=== PATIENT | male | born 1955 | race Hispanic/Latino ===

== ENCOUNTER 2017-07-10 08:12 | Day surgery (SDC) | payer OTHER, MEDICAID ==
[~2017-07-10] VITALS: Ht 167.6 cm; Wt 95.8 kg
[~2017-07-10 08:12] MED LIST: CLON1TAB4 PO; GABA-531 PO; HYDR-4060 PO; LISI-613 PO; NAPR-1023 PO; ROSU20TA PO; TRAM50TA4 PO
[2017-07-10 09:12] VITALS: BP 136/89
[2017-07-10] MEDS: SODIUM CHLORIDE 0.9% 1000ML 1,000 ML IV ONE (09:21)
[2017-07-10] MEDS ORDERED: PROPOFOL 10 MG/ML 20ML VIAL IV ONE (09:43)
[2017-07-10] MEDS ORDERED: FENTANYL CITRATE PF 50 MCG/1 ML 2ML VIAL ONE (09:43)
[2017-07-10 10:02] VITALS: BP 93/62
== END 2017-07-10 10:35 | disposition home or self-care (01) ==
LOC: DAH 08:12
PROVIDERS: ATTEND Internal Medicine Gastroenterology
DX: Z12.11 Encounter for screening for malignant neoplasm of colon (principal); I10 Essential (primary) hypertension; E78.5 Hyperlipidemia, unspecified; I25.10 Atherosclerotic heart disease of native coronary artery without angina pectoris; G43.909 Migraine, unspecified, not intractable, without status migrainosus; Z79.899 Other long term (current) drug therapy; Z98.890 Other specified postprocedural states; Z68.41 Body mass index [BMI] 40.0-44.9, adult; K57.30 Diverticulosis of large intestine without perforation or abscess without bleeding
CPT/HCPCS: 93005; A4606; G0121; J2704; J3010; J7030

== ENCOUNTER → 2019-02-26 | Outpatient (CLI) | payer OTHER, MEDICARE ==
[~2019-02-26] MED LIST changes: +CLON1TAB12 PO; -CLON1TAB4 PO; -ROSU20TA PO; +ROSU20TA23 PO
== END | disposition home or self-care (01) ==
LOC: SHCH 08:44
PROVIDERS: ATTEND Internal Medicine Cardiovascular Disease
DX: R94.31 Abnormal electrocardiogram [ECG] [EKG] (principal); I44.7 Left bundle-branch block, unspecified
CPT/HCPCS: 93306

== ENCOUNTER → 2019-02-28 | Outpatient (CLI) | payer OTHER, MEDICARE ==
[~2019-02-28] VITALS: Ht 162.6 cm; Wt 102.5 kg
[~2019-02-28] MED LIST changes: +REGADENOSON 0.4 MG/5 ML PF SYG IVP SCH
== END | disposition home or self-care (01) ==
LOC: SHCH 08:33
PROVIDERS: ATTEND Internal Medicine Cardiovascular Disease
DX: R94.31 Abnormal electrocardiogram [ECG] [EKG] (principal); I44.7 Left bundle-branch block, unspecified
CPT/HCPCS: 78452; 93017; 96374; A9500 ×2; J2785

== ENCOUNTER → 2020-06-08 | Outpatient (CLI) | payer OTHER ==
[~2020-06-08] MED LIST changes: -LISI-613 PO; +LISI20TA24 PO; -REGADENOSON 0.4 MG/5 ML PF SYG IVP SCH
== END | disposition home or self-care (01) ==
LOC: RAH 13:29
PROVIDERS: ATTEND Internal Medicine Cardiovascular Disease
DX: Z13.6 Encounter for screening for cardiovascular disorders (principal)
CPT/HCPCS: 75571

== ENCOUNTER → 2020-11-02 | Outpatient (CLI) | payer OTHER, MEDICARE ==
[~2020-11-02] VITALS: Ht 162.6 cm; Wt 104.8 kg
[~2020-11-02] MED LIST changes: +REGADENOSON 0.4 MG/5 ML PF SYG IVP SCH
== END | disposition home or self-care (01) ==
LOC: SHCH 08:44
PROVIDERS: ATTEND Internal Medicine Cardiovascular Disease
DX: I44.7 Left bundle-branch block, unspecified (principal); R07.9 Chest pain, unspecified; R51.9 Headache, unspecified; M79.606 Pain in leg, unspecified
CPT/HCPCS: 78452; 93017; 96374; A9500 ×2; J2785

== ENCOUNTER → 2023-04-11 | Outpatient (CLI) | payer OTHER ==
[~2023-04-11] MED LIST changes: +REGADENOSON 0.4 MG/5 ML PF SYG IVP ONE; -REGADENOSON 0.4 MG/5 ML PF SYG IVP SCH
== END | disposition home or self-care (01) ==
LOC: SHCH 08:13
PROVIDERS: ATTEND Internal Medicine Cardiovascular Disease
DX: I25.119 Atherosclerotic heart disease of native coronary artery with unspecified angina pectoris (principal)
CPT/HCPCS: 78452; 96374; 93017; J2785; A9500 ×2

== ENCOUNTER → 2024-06-18 | Outpatient (CLI) | payer OTHER ==
[~2024-06-18] MED LIST changes: -NAPR-1023 PO; +NAPR-1194 PO; -REGADENOSON 0.4 MG/5 ML PF SYG IVP ONE
[2024-06-18 12:13] LABS: CREATININE 1.2 mg/dL (0.5-1.3); POTASSIUM 3.9 mmol/L (3.5-5.1)
== END | disposition home or self-care (01) ==
LOC: LAB 05-22 09:40
PROVIDERS: ATTEND Physician Assistant
DX: R07.9 Chest pain, unspecified (principal)
CPT/HCPCS: 36415; 80048

== ENCOUNTER → 2024-06-25 | Outpatient (CLI) | payer OTHER ==
[~2024-06-25] MED LIST changes: +IOHEXOL 350 MG/ML 100ML INFUS..BTL IV ONE
--- NOTE | 2024-06-25 10:36 | HMCIMG ---
CT OF THE CHEST WITH CONTRAST- CT Cardiac Angio co-interpretation This is done as part of the CT cardiac angiogram study. The interpretation of the coronary arteries will be done by structural steel ironworker in a separate report. History: over-read Comparison: none CT Dose Index (CTDI): 77.90 mGy Dose Length Product (DLP): 493.40 total mGy PROTOCOL: Examination is done at 2.5 millimeter volumetric acquisition after contrast administration with Isovue 370, 100 cc IV, without complications. Photography is done at 5 millimeter thick intervals for the thorax. The examination begins above the heart and therefore the lung apices are incompletely included. The rest of the left lung is included but the right lung is only included up to its middle third. The periphery of the right lung is not included in the study. FINDINGS: The visualized part of the airway is preserved. The bony and soft tissue structures of the chest wall are unremarkable. The aorta is unremarkable. No mediastinal lymphadenopathy is seen. The lung windows demonstrate no worrisome pulmonary nodules, masses or infiltrates. There is no evidence of pulmonary embolism in the visualized lung segments. The upper abdominal views are unremarkable. Impression: No significant abnormalities identified.
== END | disposition home or self-care (01) ==
LOC: DAH 08:29 → RAH 08:29
PROVIDERS: ATTEND Internal Medicine Cardiovascular Disease
DX: R07.9 Chest pain, unspecified (principal)
CPT/HCPCS: 75574; Q9967

== ENCOUNTER 2024-12-02 14:43 | Observation (INO) | payer OTHER, MEDICAID ==
[~2024-12-02] VITALS: Ht 167.6 cm; Wt 102.5 kg
[~2024-12-02 14:43] MED LIST changes: -IOHEXOL 350 MG/ML 100ML INFUS..BTL IV ONE
[2024-12-02 15:22] LABS: IMMATURE GRANULOCYTE ABSOLUTE 0.02 K/uL (0-1); NUCLEATED RED BLOOD CELLS 0.0 % (0.0-0.19); PLATELET COUNT (AUTO) 198 K/uL (130-400); RED BLOOD CELL COUNT(AUTO) 4.17 MIL/uL (4.50-6.20); RED CELL DISTRIBUTION WIDTH 13.9 % (11.0-15.5); WHITE BLOOD COUNT (AUTO) 5.6 K/uL (4.8-10.8)
[2024-12-02 15:35] LABS: CREATININE 1.0 mg/dL (0.5-1.3); GLOMERULAR FILTR. RATE CALC 81.0 mL/min (>90); GLUCOSE,RANDOM 89.0 mg/dL (70-105); SODIUM SERUM 139.0 mmol/L (136-145); UREA NITROGEN, BLOOD 17.0 mg/dL (7-18)
--- NOTE | 2024-12-02 15:57 | ERN ---
ED Note History of Present Illness Stated Complaint: NUMBNESS TO BILATERAL ARMS Chief Complaint: Numbness Time Seen by MD: 14:49 Time Seen by Midlevel: 14:52 Dictation: 69-YEAR-OLD MALE COMING IN FROM PCP'S OFFICE FOR EVALUATION. PATIENT STATES AT ABOUT 3:00 A.M. HE FELT BILATERAL HAND TINGLING SENSATION, THEN AT 10:00 A.M. SHE HAD SHARP CHEST PAIN, HE SAYS HE TOOK HIS NITRO SUBLINGUAL THAT HE HAS PRESCRIBED FOR HIS ANGINA, WENT TO HIS PCP'S OFFICE TODAY AND WAS SENT HERE FOR " ABNORMAL" EKGS. Allergies: Coded Allergies: No Known Drug Allergies (Unverified Allergy, Unknown, 07/02/15) Home Meds Reported Medications Tramadol Hcl (Tramadol HCl) 50 Mg Tablet, 50 MG PO AD PRN for PAIN, TAB 07/02/15 Hydrocodone/Acetaminophen (Hydrocodon-Acetaminophen 5-325) 1 Each Tablet, 1 EACH PO AD PRN for PAIN, TAB 07/02/15 Naproxen (Naproxen) 500 Mg Tablet, 500 MG PO AD PRN for PAIN, TAB 07/02/15 Clonazepam (Clonazepam) 1 Mg Tablet, 1 MG PO BID, TAB 07/02/15 Lisinopril (Lisinopril) 20 Mg Tablet, 20 MG PO AM, TAB 07/02/15 Rosuvastatin Calcium (Crestor) 20 Mg Tablet, 20 MG PO HS, TAB 07/02/15 Gabapentin (Gabapentin) 300 Mg Capsule, 300 MG PO TID, CAP 07/02/15 Past Medical History Past Medical History: Heart Disease, Hypertension Additional Past Medical Hx: RA, OSTEO Surgical History: Other Review of System Dictation CONSTITUTIONAL: NEGATIVE FOR FEVER,CHILLS, AND WEIGHT LOSS EYES: NEGATIVE FOR INJURY, PAIN,REDNESS, AND DISCHARGE ENT: NEGATIVE FOR INJURY,PAIN OR SWELLING CARDIOVASCULAR: NEGATIVE FOR CHEST PAIN, PALPITATIONS, AND EDEMA RESPIRATORY: NEGATIVE FOR SHORTNESS OF BREATH, COUGH, AND WHEEZING, ABDOMEN/GI: NEGATIVE FOR ABDOMINAL PAIN, NAUSEA, VOMITING, DIARRHEA, AND CONSTIPATION BACK: NEGATIVE FOR INJURY AND PAIN : NEGATIVE FOR INJURY, BLEEDING AND DISCHARGE MS/EXTREMITY: NEGATIVE FOR INJURY AND DEFORMITY SKIN: NEGATIVE FOR RASH, AND DISCOLORATION NEURO: NEGATIVE FOR HEADACHE, WEAKNESS, NUMBNESS, TINGLING, AND SEIZURE PSYCH: NEGATIVE FOR SUICIDE IDEATION, HOMICIDAL IDEATION, AND HALLUCINATIONS Review of Systems: was completed Initial Vital Sign VS Vital Signs Date Time Temp Pulse Resp B/P (MAP) Pulse Ox O2 Delivery O2 Flow Rate FiO2 12/02/24 14:44 78 16 168/90 97 Room Air 0 12/02/24 15:00 21 12/02/24 16:30 98.2 Physical Exam Dictation GENERAL: AWAKE, ALERT, NAD HEAD/FACE: NORMOCEPHALIC, ATRAUMATIC EYES: PERRL, EOMI, VISION AT BASELINE ENT: ORAL CAVITY CLEAR, TMS CLEAR, NO SIGNS OF INFECTION NECK: TRACHEA MIDLINE, SUPPLE, NO NUCHAL RIGIDITY CARDIOVASCULAR: RRR, NORMAL S1/S2, NO MRGS, NO JVD RESPIRATORY: CTAB, NO RESPIRATORY DISTRESS, NO RALES OR WHEEZES ABDOMEN: SOFT, NON-TENDER, NON-DISTENDED, NORMAL BOWEL SOUNDS, NO GUARDING OR REBOUND. SKIN: WARM, DRY, NORMAL TURGOR, NO RASH MS/EXTREMITY: PULSES EQUAL, NO CYANOSIS, NEUROVASCULAR INTACT, FROM NEURO: COAX4, GCS 15, STRENGTH 5/5, CN 2-12 INTACT, NORMAL CEREBELLAR EXAM, NORMAL GAIT, PSYCH: NORMAL BEHAVIOR, MOOD, AND AFFECT NORMAL Results (Laboratory/Radiology) Laboratory/Radiology Laboratory Tests Test 12/02/24 15:09 White Blood Count 5.6 K/uL (4.8-10.8) Red Blood Count 4.17 MIL/uL (4.50-6.20) L Hemoglobin 12.1 g/dL (14.0-18.0) L Hematocrit 36.4 % (42-54) L Mean Corpuscular Volume 87.3 fL (79-99) Mean Corpuscular Hemoglobin 29.0 pg (27.0-33.0) Mean Corpuscular Hemoglobin Concent 33.2 g/dL (32.0-36.0) Red Cell Distribution Width 13.9 % (11.0-15.5) Platelet Count 198 K/uL (130-400) Mean Platelet Volume 9.6 fL (7.5-10.5) Immature Granulocyte % (Auto) 0.4 % (0-1) Neutrophils (%) (Auto) 56.7 % (40.0-77.0) Lymphocytes (%) (Auto) 29.1 % (21.0-51.0) Monocytes (%) (Auto) 7.6 % (3.0-13.0) Eosinophils (%) (Auto) 5.0 % (0.0-8.0) Basophils (%) (Auto) 1.2 % (0.0-5.0) Neutrophils # (Auto) 3.2 K/uL (1.8-7.7) Lymphocytes # (Auto) 1.6 K/uL (1.0-4.8) Monocytes # (Auto) 0.4 K/uL (0.1-1.0) Eosinophils # (Auto) 0.28 K/uL (0.00-0.70) Basophils # (Auto) 0.07 K/uL (0.00-0.20) Absolute Immature Granulocyte (auto 0.02 K/uL (0-1) Nucleated Red Blood Cells 0.0 % (0.0-0.19) Sodium Level 139 mmol/L (136-145) Potassium Level 4.2 mmol/L (3.5-5.1) Chloride Level 101 mmol/L (101-111) Carbon Dioxide Level 34 mmol/L (21-32) H Blood Urea Nitrogen 17 mg/dL (7-18) Creatinine 1.0 mg/dL (0.5-1.3) Glomerular Filtration Rate Calc 81 mL/min (>90) Random Glucose 89 mg/dL (70-105) Total Calcium 9.0 mg/dL (8.5-10.1) Troponin I High Sensitivity 7 ng/L (4-75) B-Type Natriuretic Peptide 41 pg/mL (0-100) Labs Reviewed?: Yes EKG Comment: EKGS DONE AT 2:52 P.M.. SINUS RHYTHM AT A RATE OF 80. LEFT BUNDLE BRANCH BLOCK. NO STEMI INTERPRETED BY ER MD ED Course ED Course Orders Procedure Category Date Status Time Cbc With Differential LAB 12/02/24 Complete 14:55 Basic Metabolic Panel LAB 12/02/24 Complete 14:55 B-Type Natriuretic LAB 12/02/24 Complete Peptide 14:55 Troponin I High LAB 12/02/24 Complete Sensitivity 14:55 Chest 1vw RAD 12/02/24 Resulted 14:55 12 Lead Ekg Tracing- EKG 12/02/24 Logged Technical 14:55 Admit Orders ADM 12/02/24 Transmitted 16:39 Vital Signs Date Time Temp Pulse Resp B/P (MAP) Pulse Ox O2 Delivery O2 Flow Rate FiO2 12/02/24 16:30 98.2 80 18 136/78 97 Room Air* 0 21 12/02/24 15:00 80 18 134/85 97 Room Air* 0 21 12/02/24 14:44 78 16 168/90 97 Room Air 0 HEART Score Response (Comments) Value History: Moderate suspicion (+1) 1 EKG: Normal 0 Age: > 65yrs (+2) 2 Risk Factors: 3+ risk factors (+2) 2 Total 5 Medical Decision Making MDM MDM: 69-YEAR-OLD MALE COMING IN FROM PCP'S OFFICE FOR EVALUATION. PATIENT STATES AT ABOUT 3:00 A.M. HE FELT BILATERAL HAND TINGLING SENSATION, THEN AT 10:00 A.M. SHE HAD SHARP CHEST PAIN, HE SAYS HE TOOK HIS NITRO SUBLINGUAL THAT HE HAS PRESCRIBED FOR HIS ANGINA, WENT TO HIS PCP'S OFFICE TODAY AND WAS SENT HERE FOR " ABNORMAL" EKGS. BLOOD WORK IS UNREMARKABLE. TROPONIN IS NEGATIVE. NORMAL BNP. EKGS SHOWS SI NUS RHYTHM WITH A LEFT BUNDLE-BRANCH BLOCK, THIS IS NEW FINDING, PREVIOUS EKGS SHOWS NSR. PATIENT WILL BE ADMITTED FOR ACS RULE OUT, SPOKE TO WARREN FOR BENCHMARK, OKAY TO ADMIT. AT 5:01 P.M., PATIENT DECIDED THAT HE WANTS TO LEAVE AGAINST MEDICAL ADVICE. PATIENT WAS EDUCATED ON POSSIBLE COMPLICATIONS INCLUDING IF HE WERE TO LEAVE AGAINST MEDICAL ADVICE. PATIENT VERBALIZED UNDERSTANDING BUT STILL DECIDED TO LEAVE. EDUCATED THAT HE CAN COME BACK IF HE HAS SYMPTOMS RETURN OR WORSEN. STATES HE RATHER GO SEE DR. TAYLOR OUTPATIENT. DIFFERENTIAL DIAGNOSIS: STEMI, NSTEMI, RATIONALE: TESTS CONSIDERED AND ORDERED SECONDARY TO SHARED DECISION MAKING INCLUDE: LABS, ECG AND RADIOLOGY PREVIOUS OUTSIDE RECORDS REVIEWED: OLD ER VISITS. RISK OF COMPLICATION AND/OR MORBIDITY OR MORTALITY OF PATIENT MANAGEMENT: NONE MEDICATIONS-PER MEDICATION RECONCILIATION NEED FOR HOSPITALIZATION: PATIENT DOES MEET CRITERIA FOR HOSPITALIZATION. NEED FOR EMERGENCY MAJOR/MINOR SURGERY: NO THERE ARE NO SOCIAL CONCERNS WITH THIS PATIENT. PRESCRIPTION DRUG MANAGEMENT PRESCRIPTIONS WILL INCLUDE SYMPTOMATIC CARE PATIENT'S PRIOR EXTERNAL MEDICAL RECORDS FROM OTHER ER VISITS WERE REVIEWED BY ME INDICATED. PRIOR TESTING AND RESULTS FROM PREVIOUS VISITS WERE REVIEWED. PRIOR TESTS WERE TAKEN INTO ACCOUNT WITH MEDICAL DECISION MAKING AND RESOURCE UTILIZATION, INDEPENDENT HISTORIAN/HISTORIANS WERE USED TO OBTAIN COMPLETE MEDICAL HISTORY. I INDEPENDENTLY INTERPRETED THE TEST THAT WERE PERFORMED, RESULTS WERE REVIEWED BY ME AND CONSIDERED FINDINGS ON RADIOLOGY IF ORDERED. MEDICAL MANAGEMENT AND EXAMINATION INTERPRETATION DISCUSSIONS WERE HAD BY ME WITH OTHER QUALIFIED HEALTHCARE PROFESSIONALS INDICATED FOR THE PATIENT'S CARE. DX & DISP Disposition: Inpatient Decision to Admit Date: Dec 02, 2024 Decision to Admit Time: 16:12 Departure Impression: Primary Impression: Chest pain Additional Impression: Abnormal finding on EKG Condition: Stable Referrals: ELI HERNANDEZ MD (PCP) I have reviewed the case, and I agree with, Diagnosis and Plan AKIKO AVILEZ NP Dec 02, 2024 15:57
--- NOTE | 2024-12-02 16:00 | HMCIMG ---
EXAM: CR Chest, 1 View. CLINICAL HISTORY: CP COMPARISON: None provided. FINDINGS: LUNGS: There is no mass, infiltrate, or acute pulmonary abnormality. PLEURAL SPACES: No evidence of pleural effusion or pneumothorax. MEDIASTINUM: Cardiac size and mediastinal contours within normal limits. BONES: No aggressive appearing osseous lesion seen. IMPRESSION: No acute cardiopulmonary pathology is evident. /[place]
[2024-12-02 17:00] VITALS: BP 139/89; PULSE 80; RESP 18; TEMP 98.2; O2SAT 97
--- NOTE | 2024-12-02 17:00 | NUR ---
AKIKO HUBER NP SPOKE TO PT ABOUT ADMISSION AND PTS DESIRE TO LEAVE THE HOSPITAL. PT UNDERSTANS RISKS OF LEAVING, STATES HE WILL FOLLOW UP WITH PCP. AMA FORM WAS SIGNED BY PT, PT REPORTS NO COMPLAINTS AT THIS TIME
--- NOTE | 2024-12-02 17:07 | EKG ---
[facility] Test Date: 2024-12-02 Test Time: 14:52:41 Pat Name: ALEJANDRO CHAPIN Department: [facility]IP Room: ED 15 Gender: M Training And Development Coordinator: [id number] : [id number] Requested By: AKIKO AVILEZ Order Number: [id number] Reading MD: Mark Acosta Measurements Intervals [place] Rate: 80 P: 6 UT: 186 QRS: -19 QRSD: 146 T: 116 QT: 436 QTc: 501 Interpretive Statements Sinus rhythm Left bundle branch block Compared to ECG 07/10/2017 08:33:05 Left bundle-branch block now present ST (T wave) deviation no longer present Electronically Signed On 12-03-2024 19:41:14 CDT by Mark Acosta Please click the below link to view image of tracing.
[2024-12-02] MEDS ORDERED: ARTIFICAL TEARS SOL 15 ML OP PRN (17:30)
[2024-12-02] MEDS ORDERED: guaiFENesin-DM 200/20MG 10ML PO PRN (17:30)
[2024-12-02] MEDS ORDERED: LOPERAMIDE HCL 2 MG CAP PO PRN (17:30)
[2024-12-02] MEDS ORDERED: LIDOCAINE HCL 2% VISCOUS 30 ML, MAG/ALUM/SIMETH 30ML 30 ML, DICYCLOMINE HCL 20 MG PO PRN (17:30)
[2024-12-02] MEDS ORDERED: LACTULOSE 20 GM/30 ML UDCUP PO PRN (17:30)
[2024-12-02] MEDS ORDERED: BENZOCAINE/MENTH/CETYLPYRD CL 1 EACH LOZENGE MM PRN (17:30)
[2024-12-02] MEDS ORDERED: MAG/ALUM/SIMETH 30 ML UDCUP PO PRN (17:30)
[2024-12-02] MEDS ORDERED: NITROGLYCERIN 0.4 MG SL TAB SL PRN (17:30)
[2024-12-02] MEDS ORDERED: FAMOTIDINE 20MG VIAL IV SCH (21:00)
[2024-12-02] MEDS ORDERED: FAMOTIDINE 20MG TAB PO SCH (21:00)
== END 2024-12-02 17:00 | disposition left against medical advice (07) ==
LOC: EDH 14:43 → EDHIP 16:39
PROVIDERS: ADMIT Internal Medicine; ATTEND Internal Medicine
DX: R07.89 Other chest pain (principal); I10 Essential (primary) hypertension; R20.2 Paresthesia of skin; Z79.899 Other long term (current) drug therapy; Z98.890 Other specified postprocedural states
CPT/HCPCS: 99285; 71045; 84484; 80048; 83880; 85025; 36415; 93005; G0378